=== PATIENT | female | born 1985 | race Caucasian/White ===

== ENCOUNTER 2024-01-13 19:02 | Emergency (ER) | payer OTHER ==
[~2024-01-13] VITALS: Ht 167.6 cm; Wt 63.5 kg
[2024-01-13 19:20] VITALS: BP 117/81; PULSE 81; RESP 16; TEMP 97.3; O2SAT 98
[2024-01-13] MEDS ORDERED: cefTRIAXone 1,000 MG VIAL ONE (23:04)
[2024-01-13] MEDS ORDERED: LIDOCAINE MPF 1% 5 ML ONE ×2 (23:05)
[2024-01-13] MEDS: cefTRIAXone 1,000 MG in LIDOCAINE MPF 1% 2.1 ML IM ONE (23:15)
[2024-01-13] MEDS: KETOROLAC 60 MG/2 ML VIAL IM ONE (23:15)
[2024-01-13] MEDS ORDERED: NAPR-54 PO (23:20)
[2024-01-13] MEDS ORDERED: CEPH-588 PO (23:20)
[2024-01-13 23:25] VITALS: BP 117/81; PULSE 81; RESP 16; TEMP 97.3; O2SAT 98
== END 2024-01-13 23:25 | disposition home or self-care (01) ==
LOC: MED 19:02
DX: L03.114 Cellulitis of left upper limb (principal); Z79.899 Other long term (current) drug therapy
CPT/HCPCS: 72050; 73030; 96372; 99284; J0696; J1885; J2001